=== PATIENT | male | born 1975 | race Caucasian/White ===

== ENCOUNTER 2016-10-21 15:30 | Observation (INO) | payer OTHER ==
[2016-10-21] VITALS (7 sets, daily range): BP systolic 123–141; BP diastolic 71–92; PULSE 61–71; RESP 8–18; O2SAT 95–98
[~2016-10-21] VITALS: Ht 182.9 cm; Wt 114.0 kg
[2016-10-21] MEDS ORDERED: Dexamethasone 4 mg/mL Inj ONE (15:31)
[2016-10-21] MEDS ORDERED: Ondansetron 2 mg/mL 2 mL Inj ONE (15:31)
[2016-10-21] MEDS ORDERED: Propofol 10,000 mCg/mL 20 mL Inj ONE (15:31)
[2016-10-21] MEDS ORDERED: fentaNYL-PF 50 mCg/mL 2 mL Inj ONE (15:31)
[2016-10-21] MEDS ORDERED: Ampicillin-Sulbactam Inj 3,000 MG in 0.9% Sodium Chloride 100 ML IV SCH (15:45)
[2016-10-21] MEDS ORDERED: MetoCLOpramide 5 mg/mL 2 mL Inj IVPUSH PRN (15:50)
[2016-10-21] MEDS ORDERED: Ondansetron 2 mg/mL 2 mL Inj IVPUSH PRN ×3 (15:50→18:20)
[2016-10-21 16:16] LABS: BASOPHILS % (AUTO) 0.2 % (0-3); EOSINOPHILS % (AUTO) 1.1 % (0-5); MONOCYTES % (AUTO) 8.2 % (4-12); Mean Corpuscular Hemoglobin 29.5 pg (27.0-35.0); Mean Corpuscular Volume 85.7 fL (81-100); Platelet Count 301 bil/L (150-400)
[2016-10-21] MEDS ORDERED: Lactated Ringer's 1,000 ML IV ONE ×2 (17:50→20:30)
--- NOTE | 2016-10-21 17:59 | NUR ---
Admit patient admitted to room 1004 . Patient was a direct admit for a cholecystectomy. Admission completed by admit nurse.
[2016-10-21] MEDS ORDERED: Bupivacaine-MPF 0.5% 30 mL Inj INFILTRATE ONE (18:01)
--- NOTE | 2016-10-21 18:19 | PCM.HPANE ---
Patient Data Surgeon Admitting Provider:Mari Velázquez MD Attending Provider:Mari Velázquez MD Primary Care Physician:Jon Maza MD Other Provider: Reason for Visit MAGNOLIA Ht/WT & BMI Height (Feet): 6 Height (Inches): 0.00 Weight (Kilograms): 113.600 Body Mass Index 33.92 Allergies Coded Allergies: No Known Allergies (Unverified , 05/09/12) Past Anesthesia History Anesthesia History: Denies:: Anesthesia Reactions Diabetes History Hx Diabetes?: No MRSA MRSA: No Medications Home Meds Incl Beta Aristides: No No Active Prescriptions or Reported Meds History History of ENT Problems?: No Hx of Heart Problems?: No Hx of Respiratory Problem?: No Respiratory History: Denies:: Asthma COPD Chest Surgery Dyspnea Emphysema Hemoptysis Pneumonia Tuberculosis Hx Neurologic Problems?: No Hx of GI Problems?: No Hx of Problems?: No Male Hx: Denies:: Prostate Problems Scrotal Mass Testicular Surgery Hx Musculoskeletal Problems?: Yes Musculoskeletal History: Positive for:: Back Injury Denies:: Joint Replacement Musculoskeletal Trauma Hx of Psycho/Social Problems?: No Hx Surgeries?: Yes (Appendectomy) Hx Any Other Health Problems?: Yes Other History: Positive for:: Hospitalization Denies:: Cancer Endocrine Disease Thyroid Disease History Blood Transfusions: Positive for:: Accept Blood Products? Denies:: Blood Transfuse Reaction Blood Transfusions Hx Diabetes: No Hx Alcohol Use: NoHx Substance Use: NoHave You Smoked inLast 12 mo: No Stop/Bang Treated for Sleep Apnea?: No Do You Have a CPAP Machine?: Yes S-Snoring: Do You Snore Loudly: Yes T-Tired: feel tired, fatigued: Yes O-Obsered: Observed not breath: No P-Blood Pressure: treated: No B- Body Mass Index > 35 kg/m2: No A- Age over 50: No N- Neck Large Circumference: No G- Gender Male: Yes MELANIE Total Score: 3 Risk Assessment Category Category 1A: Patient has history of documented sleep apnea, and HAS NOT received any narcotic, sedative or anesthesia administration during this stay. Category 1B: Patient has history of documented sleep apnea, and HAS received any narcotic , sedative or anesthesia administration during this stay Category 2: Patient has SUSPECTED Obstructive Sleep Apnea, and HAS received any narcotic , sedative or anesthesia administration during this stay. Category 3: Patient has SUSPECTED Obstructive Sleep Apnea and HAS NOT received narcotic, sedative or anesthesia administration during this stay. Category 4: Outpatient in Procedural Areas with known sleep apnea or who screen positive for High Risk via the STOP/BANG questionnaire. Exam Exam Vital Signs Vital Signs Date Time Temp Pulse Resp B/P Pulse Ox O2 Delivery O2 Flow Rate FiO2 10/21/16 16:56 36.6 67 18 123/83 96 Room Air General Appearance: Alert, Oriented X3, Cooperative HEENT/AIRWAY: MP 2 Lungs: Clear to Auscultation, Normal Air Movement Heart: Exam Unremarkable Meds/Labs/Diagnostics Admission Meds Current Medications Bupivacaine HCl (Sensorcaine-MPF 0.5% Inj) 30 ml STK-MED ONCE INFILTRATE Last administered on 10/21/16t 18:01; Start 10/21/16 at 18:01; Stop 10/21/16 at 18:02 ; Status DC Labs Test 10/21/16 16:03 White Blood Count 4.7th/mm3 (3.8-10.1) Red Blood Count 5.26mil/mm3 (4.40-5.80) Hemoglobin 15.5g/dL (13.8-17.2) Hematocrit 45.1% (41.0-50.0) Mean Corpuscular Volume 85.7fL (81-100) Mean Corpuscular Hemoglobin 29.5pg (27.0-35.0) Mean Corpuscular Hemoglobin Concent 34.4% (32.0-37.0) Red Cell Distribution Width 13.8% (12.3-15.4) Platelet Count 301bil/L (150-400) Neutrophils (%) (Auto) 57.0% (40-74) Lymphocytes (%) (Auto) 33.3% (14-46) Monocytes (%) (Auto) 8.2% (4-12) Eosinophils (%) (Auto) 1.1% (0-5) Basophils (%) (Auto) 0.2% (0-3) Plan Impression Patient chart reviewed, patient interviewed and anesthestic plan with risks, benefits, and alternatives discussed, and informed consent obtained. ASA Physical Status: ASA2 Mod Systemic Disease Anesthetic Plan: GA Bene/Risks/Altern/Consents: Yes HP Complete Prior to Induction: Yes Abram Cooley MD Oct 21, 2016 18:19
[2016-10-21] MEDS ORDERED: Lactated Ringer's 1,000 ML IV SCH ×2 (18:20)
[2016-10-21] MEDS ORDERED: HYDROmorphone 1 mg/mL Inj IVPUSH PRN ×2 (18:20)
[2016-10-21] MEDS ORDERED: Phenylephrine 10,000 mCg/mL Inj IVPUSH PRN ×2 (18:20)
[2016-10-21] MEDS ORDERED: Lactated Ringer's 500 ML IV PRN ×2 (18:20)
[2016-10-21] MEDS ORDERED: Dexamethasone 4 mg/mL Inj IVPUSH PRN ×2 (18:20)
[2016-10-21] MEDS ORDERED: EPHEDrine Sulfate 50 mg/mL Inj IVPUSH PRN ×2 (18:20)
[2016-10-21] MEDS ORDERED: fentaNYL-PF 50 mCg/mL 2 mL Inj IVPUSH PRN ×2 (18:20)
--- NOTE | 2016-10-21 21:09 | PCM.ANEP1 ---
Post Anesthesia Phase 1 PACU Phase 1 Assessment Vital Signs Vital Signs Date Time Temp Pulse Resp B/P Pulse Ox O2 Delivery O2 Flow Rate FiO2 10/21/16 21:05 36.3 70 8 125/71 95 Room Air 10/21/16 16:56 36.6 67 18 123/83 96 Room Air Anesthetic Administered: GA Level of Alertness: Awake, talking MIDDLETON's with Equal Strength: Yes Pain: No Nausea or Vomiting: No Airway Device: Endotrachial Tube Oxygen Delivery: Room Air Lungs: Clear to Auscultation, Normal Air Movement Dermatome Level: Full Sensation Abram Cooley MD Oct 21, 2016 21:09
--- NOTE | 2016-10-21 21:09 | PCM.SURGPO ---
Immediate Operative Note Date of Surgery: Oct 21, 2016 Pre Operative Diagnosis Cholelithiasis, possible Choledocholithiasis Post Operative Diagnosis Extensive adhesions, Choledocholithiasis Procedure Laparoscopic lysis of adhesions, cholecystectomy with intraoperative cholangiogram, transcystic common bile duct exploration Surgeon and Casting Machine Adjuster Surgeon: Mari Velázquez MD Assistants: Laura Burgos PAC Findings Extensive adhesions, Choledocholithiasis, some of them removed. There was flow of contrast in to the duodenum, persistent filling defect at the ampulla Complications There were no periprocedural complications identified. Surgical Specimen Removed: Yes Specimen sent to Pathology: Yes Surgical Specimen description: Gallbladder with stones Anesthetic Administered: GA Grafts, Implants: None Output, Estimated Blood Loss: 0 Blood Admin during surgery: No Attending Statement assistant pastry chef listed was medically necessary for the successful completion of the case Mari Velázquez MD Oct 21, 2016 21:09
--- NOTE | 2016-10-21 21:09 | PCM.ANEP2 ---
Post Anesthesia Evaluation ASA/CMS Post Anesthesia VS in Patient's Normal Range?: Yes Resp Stable; Airway Patent?: Yes CV Function & Hydration Stable: Yes Mental Status Recovered?: Yes Pain control Satisfactory?: Yes N/V Control Satisfactory?: Yes Abram Cooley MD Oct 21, 2016 21:09
--- NOTE | 2016-10-21 22:05 | OP ---
[address] [address] OPERATIVE REPORT PATIENT: REHANA ZHU : 1975 MR#: [id number] ADMIT: 10/21/2016 JOB ID: [id number] DATE OF SURGERY: 10/21/2016 PREOPERATIVE DIAGNOSIS(ES): Cholelithiasis, possible choledocholithiasis. POSTOPERATIVE DIAGNOSIS(ES): Extensive intra-abdominal adhesions and choledocholithiasis. PROCEDURE PERFORMED: 1. Laparoscopic lysis of adhesions. 2. Cholecystectomy with intraoperative cholangiogram. 3. Transcystic exploration of common bile duct. SURGEON: Mari Velázquez MD. SUPERVISOR FABRICATION DEPARTMENT: Tammie Burgos PA-C. INDICATIONS: The patient is a 41-year-old gentleman who was sent to me for urgent consultation with escalating abdominal pain, abnormal liver function tests, and ultrasound showing gallstones. Common bile duct on the ultrasound did not show any signs of enlargement or obstruction. After discussing the risks, benefits, and alternatives, he was brought to the operating room for laparoscopic cholecystectomy, cholangiogram, possible common bile duct exploration. PROCEDURE DETAILS: He was placed in a supine position and underwent smooth induction of general anesthesia. Abdomen was prepped and draped in the usual sterile fashion. Surgical time-out was undertaken using safety checklist, and all were in agreement. I began by making a supraumbilical curvilinear incision and entered the abdomen using open Eva technique. I had initially trouble obtaining pneumoperitoneum but after advancing the scope and then examining the area carefully, I was able to notice extensive adhesions surrounding the right paramedian incision extending to the midline and to the right upper quadrant, impairing my visualization. I then placed an epigastric port left of the midline under direct vision and mobilized these intra-abdominal adhesions to aid placement of additional ports in the right upper quadrant and conduct of the operation. I took these adhesions down sharply and then placed two additional 5 mm ports in the right upper quadrant under direct vision and then repositioned the epigastric port to the right side of the falciform ligament. We noticed the gallbladder to be distended and were able to grab it and retract it cephalad and to the right and then dissected the triangle of Calot anteriorly and posteriorly, and identified the cystic artery and divided it between clips and then identified the cystic duct and clipped it toward the specimen and then performed a cystic ductotomy, and milked out the bile duct with external pressure with a DeBakey clamp and was able to extract a stone. This was removed and then after making sure there was no further sludge that was being emanated from the ductotomy, I placed a cholangiogram catheter and obtained an intraoperative cholangiogram. It did show a filling defect, but we were able to flush some contrast into the duodenum. We then gave IV glucagon and intraductal lidocaine and I attempted to flush this filling defect at the ampulla down into the duodenum but it persisted. I then advanced the cholangiogram catheter into the common bile duct and then advanced a 1 cm basket through the catheter and swept the bile duct twice to remove any possible debris at the lower aspect of the bile duct. After that, repeat cholangiogram still showed a persistent defect at the ampulla. At that point, I chose to abandon further attempts for bile duct manipulation and controlled the cystic duct with two clips on the patient's side and then divided the cystic duct and again secured the cystic duct also with the PDS Endoloop. I then dissected the gallbladder free from the liver bed with good hemostasis, placed it in an EndoCatch bag. I then irrigated and suctioned all fluid from the right upper quadrant making sure we had good hemostasis and then removed the gallbladder through the supraumbilical port site. The fascia of the umbilical port site was closed with [id number] 0-Vicryl suture. The skin was reapproximated with 4-0 Monocryl. Steri-Strips and sterile dressing were applied. Patient was recovered from anesthesia and was taken to the recovery room in stable condition.
[2016-10-22 00:05] VITALS: BP 132/80; PULSE 68; RESP 16; O2SAT 96
[2016-10-22] MEDS: D5 0.45% NaCl + KCl 20 mEq/L 1,000 ML IV SCH ×3 (00:12→10:43)
[2016-10-22] MEDS: Ampicillin-Sulbactam Inj 3,000 MG in 0.9% Sodium Chloride 100 ML IV SCH ×2 (02:33→07:51)
[2016-10-22] MEDS: HYDROmorphone 1 mg/mL Inj IVPUSH PRN ×2 (03:50→08:37)
--- NOTE | 2016-10-22 05:00 | NUR ---
Activity Patient NPO at 0200 for return to OR this am. C/O of persistent abdominal pressure, encouraged ambulation. Agreed to ambulate, lapped unit 3 times this shift, totaling 1220ft. Tolerated well, received minimal amount of pain medications after walk, which proved effective.
[2016-10-22 05:51] LABS: BASOPHILS % (AUTO) 0 % (0-3); EOSINOPHILS % (AUTO) 0 % (0-5); MONOCYTES % (AUTO) 4.5 % (4-12); Mean Corpuscular Volume 86.9 fL (81-100); NEUTROPHILS % (AUTO) 81.3 % (40-74); Platelet Count 264 bil/L (150-400)
[2016-10-22 06:01] VITALS: BP 129/80; PULSE 89; RESP 16; O2SAT 95
--- NOTE | 2016-10-22 08:44 | DRSVH ---
PROCEDURE: X-RAY OPERATIVE CHOLANGIOGRAM ([id number]) INDICATIONS: CHOLELITHISIS COMPARISON: [facility], US, US ABDOMEN, 10/20/2016, 7:51. FINDINGS: Biliary ducts: The surgeon injected contrast into the biliary ducts after cannulation of the cystic duct stump. Visualized intra- and extrahepatic bile ducts are normal in caliber, without strictures. Persistent rounded filling defects within the mid and distal extrahepatic bile duct suspicious for retained stones. No evidence for iatrogenic ductal injury. Duodenum: Contrast flows promptly through the sphincter of Oddi into the duodenum, which appears nor mal in caliber. IMPRESSION: Filling defects in common bile duct suspicious for retained stones. Dictated by: Lawrence CASTRO Interpreted: Mayito Porras MD on 10/22/2016 at 8:43 Transcribed by: OKSANA on 10/22/2016 at 8:44 Approved by: Mayito Porras M.D. on 10/22/2016 at 9:04
[2016-10-22 09:34] VITALS: BP 137/74; PULSE 78; RESP 20; O2SAT 93
--- NOTE | 2016-10-22 12:27 | PCM.DISURG ---
Surgical Discharge Instruction Date of Service Oct 22, 2016 Dates of Hospitalization Date of Hospital Admission Oct 21, 2016 at 15:30 Providers Admitting Physician: Mari Velázquez MD Primary Care Physician: Jon Maza MD Attending Physician: Mari Velázquez MD Discharge Diagnosis Post Operative diagnosis Extensive adhesions, Choledocholithiasis Diet Discharge Diet: Other (NPO) Activity Discharge Activity-General: Be up and about Dressing and Incisional Care Dressing Care: Remove outer dressing after 24 hrs Hygiene: May shower Follow Up Plan Follow Up Plan Transferring to [facility] for ERCP Call your provider for: Fever, Chills, Shortness of breath, Increasing abdominal pain, Nausea, Vomiting, Wound redness, Increasing wound pain, Warmth to touch, Discharge @ incision, pus discharge Mari Velázquez MD Oct 22, 2016 12:27
--- NOTE | 2016-10-22 13:06 | NUR ---
Social Work Readiness for Transfer: Patient is a 41 year old male admitted under observation status on 10/21/16 for nima. Patient payer as out of state. Patient PCP as MD Maza. Patient resides in [facility] with Miriam, . Plan is to transfer patient to [facility] for completion of ERCP. No other needs. Bed available today. PLAN: [place] transfer, bed available today Bill HERNANDEZ
--- NOTE | 2016-10-22 13:20 | NUR ---
Transfer Pt has been NPO since 199 this a.m. Will transfer to [facility] today for secondary surgery Patient remains NPO Pain is managed with meds and position change Care ongoing
--- NOTE | 2016-10-22 13:34 | DIS ---
[address] [address] DISCHARGE SUMMARY PATIENT: REHANA ZHU : 1975 MR#: [id number] ADMIT: 10/21/2016 JOB ID: [id number] DIS: 10/22/2016 ADMISSION DIAGNOSIS: Choledocholithiasis. OTHER DIAGNOSIS: 1. Intra-abdominal adhesions. 2. Sleep apnea. HISTORY OF PRESENT ILLNESS: The patient is a 41-year-old gentleman who was admitted for urgent consultation for escalating abdominal pain, abnormal liver function tests and ultrasound showing gallstones. Common bile duct on the ultrasound did not show any signs of enlargement or obstruction. I admitted him to the hospital and planned for a laparoscopic cholecystectomy with intraoperative cholangiogram and possible laparoscopic common bile duct exploration. HOSPITAL COURSE: He was admitted to the hospital floor and on October 21, 2016, I performed a laparoscopic lysis of adhesions, cholecystectomy with intraoperative cholangiogram and transcystic exploration of the common bile duct. I was able to remove some of the common bile duct stones but there was a persistent filling defect near the ampulla despite flow of contrast into the duodenum. At that point, I secured the cystic duct with two clips and an Endoloop and terminated the procedure. He did well postoperatively with no nausea or vomiting and his pain was controlled with minimal pain medication. He was hungry and was wanting to eat food. We repeated his blood tests on postoperative day one, that is, on October 22, 2016, which showed a normal white blood cell count and no signs of acute deterioration but his liver function studies continued to get worse with a bilirubin of 4.6, AST of 363, ALT of 607 and alkaline phosphatase of 147. At that point I looked for gastroenterology to perform an ERCP but both the providers here, Dr. Verma and Dr. Mathew, who were comfortable with ERCP, are not available to take care of him prompting me to initiate request for transferring him. I discussed the case with Dr. Martinez, impregnator at [facility] and the hospitalist, Dr. Hale, and after receiving acceptance from the [facility], we transferred him there. DISCHARGE MEDICATIONS: 1. Unasyn 3 g IV q.6. 2. D5 half NS with 20 of KCl at 100 mL/hour. 3. Hydromorphone 0.5-2 mg IV q.4 hours p.r.n. pain. 4. Ondansetron 4 mg IV q.6 hours p.r.n. nausea or vomiting.
--- NOTE | 2016-10-22 13:40 | NUR ---
DISCHARGE Patient ambulated in hallways x3 with SBA, gait steady. Minimal complaints of discomfort in abdomen. Reviewed discharge/transfer paperwork with patient, including driving straight to hospital and remaining NPO the entire time. Acknowledged understanding. arrived to transport patient down to [facility]. Packet was given to patient and driving instructions. Peripheral IV catheter was removed from right hand. Patient got dressed and was escorted outside to personal vehicle.
--- NOTE | 2016-10-23 13:42 | PATH ---
SURGICAL PATHOLOGY Attending Physician:Mari Velázquez MD CASE STATUS: Signed Out PATIENT NAME: REHANA ZHU JR PID: [id number] : 1975 DATE COLLECTED:10/21/2016 00:00 SPECIMEN: Gallbladder CLINICAL HISTORY: Cholecystitis 1). GALLBLADDER FINAL DIAGNOSIS: 1.GALLBLADDER: CHOLELITHIASIS WITH ASSOCIATED CHRONIC CHOLECYSTITIS. ICD10 CODE K80.66 GROSS DESCRIPTION: The specimen is received in one formalin filled container labeled with the patient's name, sublabeled "gallbladder" and consists of a slightly opened 7.0 x 3.0 x 2.0 CM gallbladder. The serosa is smooth. The wall is 0.2-0.4 CM in thickness. The mucosa is a dark green in color. The lumen contains a light green mucoid material and approximately 15-20 yellow green calculi which range in size from 0.3-0.6 CM in greatest dimension 5 loan servicing representative sections are submitted in one cassette. 10/22/2016 [facility] MICRO DESCRIPTION: See diagnosis. ICD-9 CODES: CPT CODES: 1: 78858 Electronically Signed Out Sagar Rizzo MD [facility] Pathology [facility] [address], [place] [address] Technical component performed at [facility], [facility] [address], [place], [address]
== END 2016-10-22 13:22 | disposition short-term general hospital (02) ==
LOC: OSC 15:30
PROVIDERS: ADMIT Student in an Organized Health Care Education/Training Program; ATTEND Student in an Organized Health Care Education/Training Program
DX: K80.10 Calculus of gallbladder with chronic cholecystitis without obstruction (principal); G47.30 Sleep apnea, unspecified; M54.5 Low back pain; Z87.891 Personal history of nicotine dependence; E66.9 Obesity, unspecified; Z68.36 Body mass index [BMI] 36.0-36.9, adult
CPT/HCPCS: 36415; 47563; 74300; 80053; 82150; 83690; 85025; G0378; G0379; J0295; J1100; J1170; J2175; J2250; J2405; J3010; J7120; Q9967